=== PATIENT | male | born 1950 | race Caucasian/White ===

== ENCOUNTER 2016-04-11 13:11 | Outpatient (CLI) | payer MEDICARE, BC ==
[2015-08-30 09:08] VITALS: O2SAT 97
== END 2016-04-11 13:12 | disposition home or self-care (01) | DRG 561 ==
LOC: CONVCARE 13:11
PROVIDERS: ATTEND Orthopaedic Surgery
DX: S42.021D Displaced fracture of shaft of right clavicle, subsequent encounter for fracture with routine healing (principal)
CPT/HCPCS: 73000

== ENCOUNTER 2016-07-04 15:51 | Outpatient (CLI) | payer MEDICARE, BC ==
[2015-08-30 09:08] VITALS: O2SAT 97
== END 2016-07-04 15:52 | disposition home or self-care (01) | DRG 561 ==
LOC: CONVCARE 15:51
PROVIDERS: ATTEND Orthopaedic Surgery
DX: S42.021D Displaced fracture of shaft of right clavicle, subsequent encounter for fracture with routine healing (principal)
CPT/HCPCS: 73000

== ENCOUNTER 2018-02-04 13:45 | Emergency (ER) | payer OTHER, MEDICARE, BC ==
[2018-02-04 14:06] LABS: BASOPHILS % (AUTO) 2 % (0-3); EOSINOPHILS % (AUTO) 2 % (0-9); HEMATOCRIT 51 % (39-53); HEMOGLOBIN 17.1 gm/dl (13.5-17.7); LYMPHOCYTES % (AUTO) 20.1 % (10-50); MEAN CORPUSCULAR HEMOGLOBIN 31.5 pg (27.0-32.0); MEAN CORPUSCULAR HGB CONC 33.6 gm/dl (32.0-36.0); MEAN CORPUSCULAR VOLUME 94 fL (80-100); MONOCYTES % (AUTO) 7.2 % (0-12); NEUTROPHILS % (AUTO) 69.3 % (37-80)
[2018-02-04 14:16] LABS: INR 2.26 (0.86-1.12)
[2018-02-04 14:17] LABS: BILIRUBIN,TOTAL 0.8 mg/dl (0.2-1.0); CALCIUM 8.9 mg/dl (8.5-10.1); CARBON DIOXIDE 28.2 mEq/L (21-32); CREATININE 1.24 mg/dl (0.80-1.30); POTASSIUM 4.4 mMol/L (3.5-5.1); TOTAL PROTEIN 7.5 gm/dl (6.4-8.2)
[2018-02-04 14:34] VITALS: BP 179/107; PULSE 70; RESP 16; TEMP 98; O2SAT 98
[2018-02-04] MEDS ORDERED: APAP/HYDROCODONE 1 EACH TABLET PO ONE (16:03)
[2018-02-04] MEDS ORDERED: DIAZEPAM 5 MG TAB ONE (16:05)
[2018-02-04] MEDS ORDERED: DIAZEPAM 5 MG TAB PO ONE (16:08)
== END 2018-02-04 16:25 | disposition home or self-care (01) | DRG 563 ==
LOC: ED 13:45
DX: S39.012A Strain of muscle, fascia and tendon of lower back, initial encounter (principal); W18.30XA Fall on same level, unspecified, initial encounter; R40.2362 Coma scale, best motor response, obeys commands, at arrival to emergency department; R40.2142 Coma scale, eyes open, spontaneous, at arrival to emergency department; R40.2252 Coma scale, best verbal response, oriented, at arrival to emergency department; Z79.01 Long term (current) use of anticoagulants; I10 Essential (primary) hypertension
CPT/HCPCS: 36415; 72125; 72128; 72131; 80053; 85025; 85610; 99283; 99285; A9270-GY

== ENCOUNTER 2018-04-02 09:39 | Outpatient (CLI) | payer BC, MEDICARE, OTHER | END 2018-04-02 09:40 | disposition home or self-care (01) | LOC: CONVCARE 09:39 ==

== ENCOUNTER 2018-04-16 07:53 | Day surgery (SDC) | payer BC ==
[2018-04-16] MEDS ORDERED: LIDOCAINE HCL 2% MPF 10 ML SOL ONE (08:34)
[2018-04-16] MEDS ORDERED: MIDAZOLAM 2 MG/2 ML SOL ONE (08:51)
[2018-04-16] MEDS ORDERED: PROPOFOL 10 MG/ML 200 MG/20 ML EMU IV ONE (08:51)
[2018-04-16] MEDS ORDERED: FENTANYL 100MCG/2ML SOL ONE (08:52)
[2018-04-16 10:06] VITALS: BP 131/88; PULSE 69; RESP 18; TEMP 97.4; O2SAT 93
== END 2018-04-16 10:44 | disposition home or self-care (01) | DRG 558 ==
LOC: SURG 07:53
PROVIDERS: ATTEND Orthopaedic Surgery
DX: M65.88 Other synovitis and tenosynovitis, other site (principal)
CPT/HCPCS: J2250; J3010; A6402; J2704